=== PATIENT | male | born 1955 | race Caucasian/White ===

== ENCOUNTER 2017-11-30 04:05 | Emergency (ER) | payer OTHER ==
[~2017-11-30] VITALS: Ht 175.3 cm; Wt 83.9 kg
[~2017-11-30 04:05] MED LIST: ASPIR 8181 MG; ASPIRIN325 MG PO; LEVOXYL25 MCG
[2017-11-30] MEDS ORDERED: LEVOTHYROXINE112 MCG PO (04:23)
[2017-11-30] MEDS ORDERED: ASPIR-LOW81 MG PO (04:24)
[2017-11-30] MEDS ORDERED: NORCO 5-325 TA1 EACH PO (06:35)
== END 2017-11-30 06:58 | disposition home or self-care (01) ==
LOC: ED 04:05
DX: N13.2 Hydronephrosis with renal and ureteral calculous obstruction (principal); E03.9 Hypothyroidism, unspecified; Z79.82 Long term (current) use of aspirin; Z85.818 Personal history of malignant neoplasm of other sites of lip, oral cavity, and pharynx; Z79.899 Other long term (current) drug therapy
CPT/HCPCS: 74176; 80053; 81001; 83690; 85025; 87088; 96361; 96374; 96375; 99284; J1170; J1885; J2405; J7030